=== PATIENT | female | born 1950 | race Caucasian/White ===

== ENCOUNTER 2016-11-09 08:48 | Outpatient (CLI) | payer OTHER, MEDICAID | END 2016-11-09 08:49 | disposition home or self-care (01) | DX: Z79.899 Other long term (current) drug therapy (principal); J30.2 Other seasonal allergic rhinitis; N18.9 Chronic kidney disease, unspecified; E11.9 Type 2 diabetes mellitus without complications; E78.5 Hyperlipidemia, unspecified; E87.1 Hypo-osmolality and hyponatremia; F20.9 Schizophrenia, unspecified; I12.9 Hypertensive chronic kidney disease with stage 1 through stage 4 chronic kidney disease, or unspecified chronic kidney disease ==

== ENCOUNTER 2016-11-10 15:37 | Outpatient (CLI) | payer OTHER, MEDICAID | END 2016-11-10 15:38 | disposition home or self-care (01) | DX: Z79.899 Other long term (current) drug therapy (principal); J30.2 Other seasonal allergic rhinitis; N18.9 Chronic kidney disease, unspecified; E11.9 Type 2 diabetes mellitus without complications; E78.5 Hyperlipidemia, unspecified; E87.1 Hypo-osmolality and hyponatremia; F20.9 Schizophrenia, unspecified; I12.9 Hypertensive chronic kidney disease with stage 1 through stage 4 chronic kidney disease, or unspecified chronic kidney disease ==

== ENCOUNTER 2017-01-08 13:21 | Outpatient (CLI) | payer OTHER, MEDICAID | END 2017-01-08 13:22 | disposition home or self-care (01) | DX: Z12.31 Encounter for screening mammogram for malignant neoplasm of breast (principal) ==

== ENCOUNTER 2017-05-04 10:19 | Outpatient (CLI) | payer OTHER, MEDICAID ==
[2017-05-04 10:47] LABS: CALCIUM 9.7 mg/dL (8.5-10.3); CREATININE 0.9 mg/dL (0.4-1.0); POTASSIUM 4.1 mmol/L (3.5-5.0)
[2017-05-04 10:58] LABS: HEMOGLOBIN A1C 0.62 g/dL
== END 2017-05-04 10:20 | disposition home or self-care (01) ==
LOC: LAB 10:19
PROVIDERS: ATTEND Internal Medicine
DX: E11.9 Type 2 diabetes mellitus without complications (principal); Z79.899 Other long term (current) drug therapy
CPT/HCPCS: 36415; 80048; 83036

== ENCOUNTER 2018-01-07 10:51 | Outpatient (CLI) | payer MEDICARE, OTHER, MEDICAID ==
--- NOTE | 2018-01-07 19:47 | XRAY Report ---
THREE-VIEW RIGHT KNEE: 01/07/2018 CLINICAL INDICATION: Pain. FINDINGS: AP, lateral, sunrise views of the right knee demonstrate severe osteoarthritis. There is no evidence of acute fracture. No effusion is present. IMPRESSION: SEVERE OSTEOARTHRITIS. TD: 01/07/2018 19:46
== END 2018-01-07 10:52 | disposition home or self-care (01) ==
LOC: DI 10:51
PROVIDERS: ATTEND Internal Medicine
DX: M25.561 Pain in right knee (principal); M17.11 Unilateral primary osteoarthritis, right knee

== ENCOUNTER 2018-06-28 10:46 | Outpatient (CLI) | payer OTHER ==
[2018-06-28 11:33] LABS: CALCIUM 9.5 mg/dL (8.5-10.3); CREATININE 0.9 mg/dL (0.4-1.0)
[2018-06-28 11:38] LABS: HB2 TOTAL 15.1 g/dL; HEMOGLOBIN A1C 0.56 g/dL; HEMOGLOBIN A1C % 5.5 % (4.6-6.2)
== END 2018-06-28 10:47 | disposition home or self-care (01) ==
LOC: LAB 10:46
PROVIDERS: ATTEND Internal Medicine
DX: Z79.899 Other long term (current) drug therapy (principal); E11.9 Type 2 diabetes mellitus without complications
CPT/HCPCS: 36415; 80048; 83036

== ENCOUNTER 2018-12-27 09:18 | Outpatient (CLI) | payer MEDICARE, OTHER, MEDICAID ==
[2018-12-27 10:16] LABS: BASOPHILS # (AUTO) 0.1 10^3/uL (0.0-0.1); BASOPHILS % (AUTO) 0.9 %; EOSINOPHILS # (AUTO) 0.4 10^3/uL (0.0-0.7); EOSINOPHILS % (AUTO) 6.5 %; HGB - HEMOGLOBIN 14.4 g/dL (12.0-16.0); LYMPHOCYTES # (AUTO) 1.9 10^3/uL (1.5-3.5); LYMPHOCYTES % (AUTO) 33.1 %; MEAN CORPUSCULAR HEMOGLOBIN 29.2 pg (27.0-31.0); MEAN CORPUSCULAR HGB CONC 32.9 g/dL (32.0-36.0); MEAN CORPUSCULAR VOLUME 88.8 fL (81.0-99.0); MEAN PLATELET VOLUME 7.1 fL (7.9-10.8); MONOCYTES # (AUTO) 0.5 10^3/uL (0.0-1.0); MONOCYTES % (AUTO) 8.1 %; NEUTROPHILS # (AUTO) 2.9 10^3/uL (1.5-6.6); NEUTROPHILS % (AUTO) 51.4 %; PLT - PLATELET COUNT 244 10^3/uL (130-450); RED BLOOD COUNT 4.91 10^6/uL (4.20-5.40); RED CELL DISTRIBUTION WIDTH 13.1 % (12.0-15.0); WHITE BLOOD COUNT 5.6 x10^3/uL (4.8-10.8)
[2018-12-27 10:34] LABS: HB2 TOTAL 15.8 g/dL; HEMOGLOBIN A1C 0.67 g/dL
[2018-12-27 11:00] LABS: ALBUMIN 4.9 g/dL (3.2-5.5); ALBUMIN/GLOBULIN RATIO 1.1 (1.0-2.2); ALKALINE PHOSPHATASE 77 IU/L (42-121); ALT ALANINE AMINOTRANSFERASE 31 IU/L (10-60); AST ASPARTATE AMINOTRANSFERASE 28 IU/L (10-42); BILIRUBIN,TOTAL 0.7 mg/dL (0.2-1.0); BUN - BLOOD UREA NITROGEN 11 mg/dL (6-20); CALCIUM 9.9 mg/dL (8.5-10.3); CARBON DIOXIDE - CO2 25 mmol/L (21-32); CHLORIDE 99 mmol/L (101-111); CHOL/HDL RATIO 4.3 (<4.4); CHOLESTEROL 219 mg/dL; CREATININE 0.8 mg/dL (0.4-1.0); GFR - MDRD 72 (>89); GLUCOSE 136 mg/dL (70-100); HDL CHOLESTEROL 51 mg/dL; LDL CHOLESTEROL,CALCULATED 128 mg/dL; LDL/HDL RATIO 2.5 (<4.4); SODIUM 136 mmol/L (135-145); TOTAL PROTEIN 9.2 g/dL (6.7-8.2); VLDL CHOLESTEROL 40 mg/dL
== END 2018-12-27 09:19 | disposition home or self-care (01) ==
LOC: LAB 09:18
PROVIDERS: ATTEND Internal Medicine
DX: Z12.11 Encounter for screening for malignant neoplasm of colon (principal); Z79.899 Other long term (current) drug therapy; Z12.12 Encounter for screening for malignant neoplasm of rectum; R21 Rash and other nonspecific skin eruption; M25.561 Pain in right knee; Z13.6 Encounter for screening for cardiovascular disorders; E78.5 Hyperlipidemia, unspecified; N18.9 Chronic kidney disease, unspecified; E11.9 Type 2 diabetes mellitus without complications; I12.9 Hypertensive chronic kidney disease with stage 1 through stage 4 chronic kidney disease, or unspecified chronic kidney disease
CPT/HCPCS: 36415; 80053; 80061; 81001; 81003; 82043; 82570; 83036; 83721; 84443; 85025; 87086

== ENCOUNTER 2019-02-06 13:14 | Outpatient (CLI) | payer MEDICARE, OTHER, MEDICAID ==
--- NOTE | 2019-02-07 10:27 | Mammography Report ---
Reason: SCREENING MAMMO Procedure Date: 02/06/2019 Accession Number: [id number] / [id number] Procedure: ALEJANDRA - Screening Mammo Dig Bilat CPT Code: FULL RESULT: EXAM: Screening Mammo Dig Bilat DATE: 02/06/2019 2:25 PM CLINICAL HISTORY: Screening encounter. No reported risk factors. TECHNIQUE: (B) - Bilateral CC and MLO views were obtained. COMPARISON: 01/08/2017 through 09/29/2010. PARENCHYMAL PATTERN: (F) - The breast(s) demonstrate(s) diffuse fatty replacement. FINDINGS: There are typically benign vascular calcifications. There are no suspicious masses, calcifications, or areas of distortion. IMPRESSION: Benign findings. BI-RADS category 2. RECOMMENDATION: (ANNUAL) - Recommend routine annual screening mammography. BI-RADS CATEGORY: (2) - Benign Findings. STANDARD QUALIFYING STATEMENTS: 1. This examination was not reviewed with the aid of Computer-Aided Detection (CAD). 2. A negative or benign imaging report should not preclude biopsy if clinically suspicious findings are present. 3. Dense breasts may obscure an underlying neoplasm. 4. This examination was reviewed without the aid of 3D breast imaging (tomosynthesis).
== END 2019-02-06 13:15 | disposition home or self-care (01) ==
LOC: DI 13:14
PROVIDERS: ATTEND Internal Medicine
DX: Z12.31 Encounter for screening mammogram for malignant neoplasm of breast (principal)
CPT/HCPCS: 77067

== ENCOUNTER 2020-02-20 11:24 | Outpatient (CLI) | payer MEDICARE, OTHER, MEDICAID ==
[2020-02-20 18:25] LABS: ALBUMIN 4.9 g/dL (3.2-5.5); ALBUMIN/GLOBULIN RATIO 1.2 (1.0-2.2); BILIRUBIN,TOTAL 0.8 mg/dL (0.2-1.0); CALCIUM 10.2 mg/dL (8.5-10.3); CREATININE 0.9 mg/dL (0.4-1.0); TOTAL PROTEIN 8.9 g/dL (6.7-8.2)
[2020-02-20 18:42] LABS: HB2 TOTAL 16.1 g/dL; HEMOGLOBIN A1C 0.68 g/dL
== END 2020-02-20 23:59 | disposition home or self-care (01) ==
LOC: LAB.WCP 11:24
PROVIDERS: ATTEND Obstetrics & Gynecology
DX: N81.4 Uterovaginal prolapse, unspecified (principal); E11.9 Type 2 diabetes mellitus without complications
CPT/HCPCS: 36415; 80053; 83036

== ENCOUNTER 2020-02-28 09:12 | Outpatient (CLI) | payer MEDICARE, OTHER, MEDICAID ==
[2020-02-28 09:39] LABS: BASOPHILS % (AUTO) 0.7 %; EOSINOPHILS # (AUTO) 0.1 10^3/uL (0.0-0.7); HGB - HEMOGLOBIN 14.4 g/dL (12.0-16.0); LYMPHOCYTES # (AUTO) 1.5 10^3/uL (1.5-3.5); LYMPHOCYTES % (AUTO) 27.5 %; MEAN CORPUSCULAR HGB CONC 33.3 g/dL (32.0-36.0); MEAN PLATELET VOLUME 8.6 fL (7.9-10.8); MONOCYTES # (AUTO) 0.4 10^3/uL (0.0-1.0); MONOCYTES % (AUTO) 7.2 %; NEUTROPHILS # (AUTO) 3.4 10^3/uL (1.5-6.6); NEUTROPHILS % (AUTO) 62.4 %; PLT - PLATELET COUNT 257 10^3/uL (130-450); RED CELL DISTRIBUTION WIDTH 13.1 % (12.0-15.0); WHITE BLOOD COUNT 5.4 x10^3/uL (4.8-10.8)
[2020-02-28 10:01] LABS: ALBUMIN 5.1 g/dL (3.2-5.5); ALBUMIN/GLOBULIN RATIO 1.3 (1.0-2.2); ALKALINE PHOSPHATASE 65 IU/L (42-121); ALT ALANINE AMINOTRANSFERASE 33 IU/L (10-60); AST ASPARTATE AMINOTRANSFERASE 25 IU/L (10-42); BILIRUBIN,TOTAL 0.8 mg/dL (0.2-1.0); BUN - BLOOD UREA NITROGEN 11 mg/dL (6-20); CALCIUM 9.8 mg/dL (8.5-10.3); CARBON DIOXIDE - CO2 27 mmol/L (21-32); CHLORIDE 98 mmol/L (101-111); CHOL/HDL RATIO 3.6 (<4.4); CHOLESTEROL 196 mg/dL; CREATININE 0.9 mg/dL (0.4-1.0); GLUCOSE 152 mg/dL (70-100); HB2 TOTAL 15.1 g/dL; HDL CHOLESTEROL 54 mg/dL; HEMOGLOBIN A1C 0.7 g/dL; HEMOGLOBIN A1C % 6.4 % (4.6-6.2); LDL CHOLESTEROL,CALCULATED 115 mg/dL; LDL/HDL RATIO 2.1 (<4.4); SODIUM 137 mmol/L (135-145); VLDL CHOLESTEROL 27 mg/dL
== END 2020-02-28 09:13 | disposition home or self-care (01) ==
LOC: LAB 09:12
PROVIDERS: ATTEND Internal Medicine
DX: E87.1 Hypo-osmolality and hyponatremia (principal); Z13.6 Encounter for screening for cardiovascular disorders; F20.9 Schizophrenia, unspecified; N81.4 Uterovaginal prolapse, unspecified; M19.90 Unspecified osteoarthritis, unspecified site; Z79.899 Other long term (current) drug therapy; E78.5 Hyperlipidemia, unspecified; E11.22 Type 2 diabetes mellitus with diabetic chronic kidney disease; I12.9 Hypertensive chronic kidney disease with stage 1 through stage 4 chronic kidney disease, or unspecified chronic kidney disease; N18.9 Chronic kidney disease, unspecified
CPT/HCPCS: 36415; 80053; 80061; 82043; 82570; 83036; 83721; 84443; 85025

== ENCOUNTER 2020-03-05 14:00 | Outpatient (CLI) | payer MEDICARE, OTHER, MEDICAID ==
[2020-03-05 16:10] LABS: CREATININE,URINE 45.5 mg/dL; MICROALBUM/CREATININE RATIO,UR 28.6 ug/mg (<30.0); MICROALBUMIN,URINE 1.3 mg/dL (0-300.0)
== END 2020-03-05 23:59 | disposition home or self-care (01) ==
LOC: LAB.R 14:00
PROVIDERS: ATTEND Internal Medicine
DX: E87.1 Hypo-osmolality and hyponatremia (principal); Z13.6 Encounter for screening for cardiovascular disorders; F20.9 Schizophrenia, unspecified; N81.4 Uterovaginal prolapse, unspecified; M19.90 Unspecified osteoarthritis, unspecified site; Z79.899 Other long term (current) drug therapy; N18.9 Chronic kidney disease, unspecified; E11.9 Type 2 diabetes mellitus without complications; I12.9 Hypertensive chronic kidney disease with stage 1 through stage 4 chronic kidney disease, or unspecified chronic kidney disease
CPT/HCPCS: 82043; 82570

== ENCOUNTER 2020-04-05 07:42 | Day surgery (SDC) | payer MEDICARE, OTHER, MEDICAID ==
[2020-04-05] MEDS ORDERED: LACTATED RINGERS 1,000 ML IV ONE ×2 (08:08→09:28)
--- NOTE | 2020-04-05 08:16 | ANESTHESIA ---
Pre-Anesthesia VS, & Labs - Diagnosis Change in bowel habits - Procedure colonoscopy Vital Signs: Temp Pulse Resp BP Pulse Ox 36.5 C 92 18 141/88 H 96 04/05/20 07:59 04/05/20 07:59 04/05/20 07:59 04/05/20 07:59 04/05/20 07:59 Height 5 ft Weight (kg) 77.5 kg - NPO >8 hours - Is Patient ?: No - Lab Results Current Lab Results: Laboratory Tests 04/05/20 08:05: POC Whole Bld Glucose 150 H Home Medications and Allergies Home Medications: Ambulatory Orders Acetaminophen [Tylenol Extra Strength] 2 TID 04/05/20 Aripiprazole [Abilify] 1 DAILY 04/05/20 Ascorbic Acid [Vitamin C] 1 DAILY 04/05/20 Fluticasone [Flonase] 1 DAILY 04/05/20 Loratadine [Claritin] 10 mg PO DAILY 11/06/14 OLANZapine [Olanzapine] 10 mg PO DAILY 11/06/14 Acetaminophen [Tylenol] 1 tab PO DAILY PRN 03/28/16 Aquadeks Chew 1 tab PO DAILY 03/28/16 Glipizide 1 tab PO DAILY 03/28/16 amLODIPine [Norvasc] 10 mg PO DAILY 03/28/16 Allergies/Adverse Reactions: Allergies Allergy/AdvReac Type Severity Reaction Status Date / Time hydrochlorothiazide Allergy Unknown Verified 03/28/16 22:31 Anes History & Medical History - Anesthetic History Anesthesia Complications: reports: No previous complications Family history of Anesthesia Complications: Denies Family history of Malignant Hyperthermia: Denies - Medical History Cardiovascular: reports: Hypertension Pulmonary: reports: None Gastrointestinal: reports: None Urinary: reports: Frequency Neuro: reports: None Musculoskeletal: reports: None Endocrine/Autoimmune: reports: Type 2 diabetes Blood Disorders: reports: None Smoking Status: Never smoker Psychosocial: reports: Anxiety - Surgical History General:  Eyes Ears Nose Throat (EENT): Cataracts Exam General: Alert, Oriented x3, Cooperative, No acute distress Dental: Other (edentulous) Mouth Openin Fingerbreadth Neck Mobility: Normal Mallampati classification: II Thyromental Distance: 4-6 cm Respiratory: Lungs clear, Normal breath sounds, No respiratory distress, No accessory muscle use Cardiovascular: Regular rate, Normal S1, Normal S2, No murmurs Abdomen: Normal bowel sounds, Soft, No tenderness, No hepatospenomegaly, No masses Extremities: No clubbing, No cyanosis, No edema, Normal pulses, No tenderness/swelling Neurological: Normal gait, Normal speech, Strength at 5/5 X4 ext, Normal tone, Sensation intact, Cranial nerves 3-12 NL, Reflexes 2+ Mental/Cognitive Status: Alert/Oriented X3, Normal for patient Cognitive Status: Other (describe below) (schizophrenia under control) Plan Anesthesia Type: MAC Consent for Procedure(s) Verified and Reviewed: Yes Code Status: Attempt Resuscitation ASA classification: 2-Mild systemic disease Is this case an emergency?: No
--- NOTE | 2020-04-05 08:31 | CONSULTATION NOTE ---
Consultation Report: Saw this patient per Dr Rodriguez's request. Patient respiratory care practitioner who has been taking care of her for 10 years is in the room and provided information about the patient. Patient is A&O x3 and able to answer questions as well. This patient does not have any significant systemic disease. She has schizophrenia which is under control with no recent history of manic attacks. He BP and blood glucose is under control. I have spoken with Dr Quiles and made him aware and suggested that the patient will be ok with Nurse Sedation.He agrees. We will be available should they need any help.
[2020-04-05] MEDS ORDERED: MIDAZOLAM 2 MG/2 ML VIAL IVP ONE (08:45)
[2020-04-05] MEDS ORDERED: fentaNYL 250 MCG/5 ML VIAL IVP ONE (08:45)
[2020-04-05 09:53] VITALS: BP 127/82
--- NOTE | 2020-04-05 10:14 | PROCEDURE REPORT ---
DATE OF SERVICE: 04/05/2020 Physician: Jason Quiles MD PREOPERATIVE DIAGNOSIS: Change in bowel habits and screening for colon cancer. POSTOPERATIVE DIAGNOSES 1. Change in bowel habits and screening for colon cancer. 2. Severe diverticulosis cecum, ascending colon. 3. Moderate diverticulosis, descending colon. 4. No polyps identified. ANESTHESIA: Nurse sedation with 4 mg of Versed and 100 mcg of fentanyl. INDICATIONS FOR PROCEDURE: Patient is a 69-year-old with a change in bowel habits. She has not had colon cancer screening in the past. She presents for colonoscopy. Risks discussed, alternatives discussed. All questions answered and consent obtained. DESCRIPTION OF PROCEDURE: Patient was properly identified, brought to the operating room, and placed in left lateral decubitus position. Sedation was given. A digital rectal examination was performed and was normal. Colonoscope was passed to the cecum. The cecum was identified by appendix and ileocecal valve. She had significant diverticulosis of the cecum and ascending colon. The scope was slowly withdrawn. She had quite significant diverticulosis of the descending colon as well. A retroflex view of the rectum was normal. No polyps were identified. Her prep was fair; however, with irrigation and suction, good visualization was obtained. She tolerated the procedure well. TD: 04/05/2020 09:36 ELISABETH
== END 2020-04-05 07:43 | disposition home or self-care (01) ==
LOC: SDS 07:42
PROVIDERS: ATTEND Surgery
PROC: 0DJD8ZZ Inspection of Lower Intestinal Tract, Via Natural or Artificial Opening Endoscopic (ICD-10-PCS; principal; 2020-04-05 08:45)
DX: R19.4 Change in bowel habit (principal); K57.30 Diverticulosis of large intestine without perforation or abscess without bleeding; E11.9 Type 2 diabetes mellitus without complications; I10 Essential (primary) hypertension; Z79.84 Long term (current) use of oral hypoglycemic drugs
CPT/HCPCS: 45378; J7120

== ENCOUNTER 2020-05-01 08:55 | Observation (INO) | payer MEDICARE, OTHER, MEDICAID ==
[~2020-05-01 08:55] MED LIST: ACETAMINOPHEN 1,000 MG/100 ML 100 ML IV ONE; CELECOXIB 100 MG CAPSULE PO ONE; GABAPENTIN 400 MG CAPSULE ONE; LACTATED RINGERS 1,000 ML IV ONE; PHENAZOPYRIDINE 100 MG TABLET PO ONE
[2020-05-01 09:28] LABS: BILIRUBIN,URINE NEGATIVE (NEGATIVE); GLUCOSE, URINE (UA) NEGATIVE (NEGATIVE); KETONES,URINE (UA) NEGATIVE (NEGATIVE); LEUKOCYTE ESTERASE, URINE NEGATIVE (NEGATIVE); NITRITE,URINE NEGATIVE (NEGATIVE); OCCULT BLOOD,URINE NEGATIVE (NEGATIVE); PROTEIN,URINE NEGATIVE (NEGATIVE); UROBILINOGEN,URINE 0.2 (NORMAL) E.U./dL (NORMAL)
[2020-05-01 09:30] LABS: CLARITY,URINE CLEAR (CLEAR)
[2020-05-01] MEDS ORDERED: LIDOCAINE 1%-EPI 1:100000 20 ML MDV ONE (09:44)
[2020-05-01] MEDS ORDERED: METHYLENE BLUE 0.5% 50 MG/10 ML AMPULE ONE (09:45)
[2020-05-01] MEDS ORDERED: VASOPRESSIN 20 UNIT/ML VIAL ONE (09:46)
--- NOTE | 2020-05-01 10:25 | ANESTHESIA ---
Pre-Anesthesia VS, & Labs - Diagnosis pelvic organ prolapse - Procedure total vaginal hysterectomy, salpingectomy, AP repair Vital Signs: Temp Pulse Resp BP Pulse Ox 37.0 C 81 16 132/81 H 98 05/01/20 09:16 05/01/20 09:16 05/01/20 09:16 05/01/20 09:16 05/01/20 09:16 Height 4 ft 5 in Weight (kg) 77.7 kg - NPO >8 hours - Is Patient ?: No - Lab Results Current Lab Results: Laboratory Tests 05/01/20 09:29: POC Whole Bld Glucose 152 H Home Medications and Allergies Loratadine [Claritin] 10 mg PO DAILY 11/06/14 Aquadeks Chew 1 tab PO DAILY 03/28/16 Glipizide 1 tab PO DAILY 03/28/16 amLODIPine [Norvasc] 10 mg PO DAILY 03/28/16 Acetaminophen [Tylenol Extra Strength] 2 mg PO TID 04/05/20 Aripiprazole [Abilify] 20 mg PO DAILY 04/05/20 Ascorbic Acid [Vitamin C] 1 tab PO DAILY 04/05/20 Fluticasone [Flonase] 1 spray KANU DAILY 04/05/20 Allergies/Adverse Reactions: Allergies Allergy/AdvReac Type Severity Reaction Status Date / Time hydrochlorothiazide Allergy Unknown Verified 03/28/16 22:31 Anes History & Medical History - Anesthetic History Family history of Anesthesia Complications: Denies Family history of Malignant Hyperthermia: Denies - Medical History Cardiovascular: reports: Hypertension Pulmonary: reports: None Gastrointestinal: reports: None Urinary: reports: Frequency, Other (history of renal failure, now resolved) Neuro: reports: None, Other (history of schizophrenia) Musculoskeletal: reports: None Endocrine/Autoimmune: reports: Type 2 diabetes Blood Disorders: reports: None Smoking Status: Never smoker Psychosocial: reports: No issues indicated - Surgical History General:  Eyes Ears Nose Throat (EENT): Cataracts Exam General: Alert, Oriented x3, Cooperative, No acute distress Dental: Other (edentulous) Mouth Openin Fingerbreadth Neck Mobility: Normal Mallampati classification: IV Thyromental Distance: 4-6 cm Respiratory: Lungs clear, Normal breath sounds, No respiratory distress, No accessory muscle use Cardiovascular: Regular rate, Normal S1, Normal S2, No murmurs Mental/Cognitive Status: Alert/Oriented X3, Normal for patient Plan Anesthesia Type: General Consent for Procedure(s) Verified and Reviewed: Yes Code Status: Attempt Resuscitation ASA classification: 2-Mild systemic disease Is this case an emergency?: No
[2020-05-01] MEDS ORDERED: CEFAZOLIN SODIUM IN 0.9 % NACL 2 GM/100 ML BAG IV ONE (10:28)
[2020-05-01] MEDS ORDERED: fentaNYL 100 MCG/2 ML VIAL IVP ONE (11:20)
[2020-05-01] MEDS ORDERED: MIDAZOLAM 2 MG/2 ML VIAL IVP ONE (11:20)
[2020-05-01] MEDS ORDERED: ePHEDrine 50 MG/ML VIAL IVP ONE (11:20)
[2020-05-01] MEDS ORDERED: ONDANSETRON 4 MG/2 ML VIAL IVP ONE (11:20)
[2020-05-01] MEDS ORDERED: ROCURONIUM 50 MG/5 ML VIAL IVP ONE (11:20)
[2020-05-01] MEDS ORDERED: GLYCOPYRROLATE 1 MG/5 ML VIAL IVP ONE (11:20)
[2020-05-01] MEDS ORDERED: LIDOCAINE-MPF 2% 5 ML VIAL IM ONE (11:20)
[2020-05-01] MEDS ORDERED: NEOSTIGMINE 1 MG/1 ML 10 ML MDV IVP ONE (11:20)
[2020-05-01] MEDS ORDERED: ACETAMINOPHEN 1,000 MG/100 ML 100 ML IV ONE (11:20)
[2020-05-01] MEDS ORDERED: PROPOFOL 200 MG/20 ML VIAL IVP ONE (11:20)
[2020-05-01] MEDS ORDERED: METHYLENE BLUE 0.5% 50 MG/10 ML AMPULE IR ONE (11:52)
[2020-05-01] MEDS ORDERED: VASOPRESSIN 20 UNIT/ML VIAL IVP ONE ×2 (11:58→15:00)
[2020-05-01] MEDS ORDERED: LIDOCAINE 1%-EPI 1:100000 20 ML MDV SUBQ ONE (12:00)
[2020-05-01] MEDS ORDERED: MORPHINE 2 MG/ML CARPUJECT IVP PRN (14:24)
[2020-05-01] MEDS ORDERED: HYDROmorphone 0.5 MG/0.5 ML SYRINGE IVP PRN (14:24)
[2020-05-01] MEDS ORDERED: ATROPINE ABBOJECT 1 MG/10 ML SYRINGE IVP PRN (14:24)
[2020-05-01] MEDS ORDERED: NALOXONE 0.4 MG/ML VIAL IVP PRN (14:24)
[2020-05-01] MEDS ORDERED: fentaNYL 100 MCG/2 ML VIAL IVP PRN (14:24)
[2020-05-01] MEDS ORDERED: ONDANSETRON 4 MG/2 ML VIAL IVP PRN (14:24)
[2020-05-01] MEDS ORDERED: LACTATED RINGERS 1,000 ML IV SCH (15:00)
[2020-05-01] MEDS ORDERED: ESTROGENS, CONJUGATED CREAM 30 GM TUBE ONE (15:18)
[2020-05-01] MEDS ORDERED: LACTATED RINGERS 1,000 ML IV ONE (15:20)
[2020-05-01] MEDS ORDERED: HYDROmorphone 1 MG/ML CARPUJECT IVP PRN (15:50)
[2020-05-01] MEDS ORDERED: ONDANSETRON ODT 4 MG TABLET TL PRN (15:50)
[2020-05-01] MEDS ORDERED: oxyCODONE 5 MG TABLET PO PRN (15:50)
--- NOTE | 2020-05-01 16:08 | ANESTHESIA POST OP EVALUATION ---
Anesthesia Post Eval - Post Anesthesia Eval Vitals: Last Vital Signs Temp 36.3 C L 05/01/20 15:36 Pulse 72 05/01/20 16:00 Resp 18 05/01/20 16:00 BP 111/70 05/01/20 16:00 Pulse Ox 99 05/01/20 16:00 CV Function Including HR & BP: positive: Stable Pain Control: positive: Satisfactory Nausea & Vomiting: positive: Negative Mental Status: positive: Baseline Respiratory Status: Airway Patent Hydration Status: Satisfactory Anesthesia Complications: positive: None
--- NOTE | 2020-05-01 16:38 | OPERATIVE REPORT ---
Operative Report - General Admit Date: 05/01/20 Procedure Date: 05/01/20 Planned Procedure: Total vaginal hysterectomy, bilateral salpingectomy, anterior and posterior repair. Cystoscopy. Pre-Op Diagnosis: Stage IV uterine prolapse Procedure Performed: Stage IV uterine prolapse Failed pessary management Post Op Diagnosis: same - Procedure Note Primary Surgeon: Jovita Pelayo MD Secondary Surgeon: Mc James MS Anesthesia Provider: Marycarmen Burgos CRNA Anesthesia Technique: General ET tube Pathology: Uterus with cervix. Fallopian tubes surgical separate, but sent in same sample. IV Fluids (mL): 1,100 Estimated Blood Loss (mL): 100 Urine Output (mL): 150 Indications: Patient is a 69 yo female with Stage IV uterine prolapse and Stage III cystoc karyn/rectocele who has failed management with pessary. Desires definitive surgical management. Findings: Stage IV uterine prolapse and cystocle, Stage II rectocele. Normnal appearing uterus. Mesosalpinx wiht fatty deposits. Normal fallopian tubes. At clsoe of procedure, rectal vault palpated free of suture and cystoscopy showed bladder to be absent of suture/injury and bilateral ureteral jets were noted. Complications: None - Other Other Information/Narrative: Consent was again confirmed. The patient was brought to the OR and underweight general anesthesia. She was placed in dorsal lithotomy with legs supported in yellowfin stirrups. Bimanual exam was performed. She was then prepared and draped in the usual sterile fashion. Redmond catheter was in place and backfilled with 50 cc of dilute methylene blue and clamped. SCDs were confirmed to be in place and operating. A surgical time out was performed. Administration of 2g IV cefazolin was confirmed. A weighted speculum was placed in the posterior vaginal vault. The cervix was grasped with a a double toothed tenaculum clamp on both its anterior and posterior lips. A total of 20 cc of 20mg vasopressin/100 cc was injected in a circumferential direction around the cervix. With downward traction, we made a circumferential incision of the vaginal epithelium at the junction of the cervix with the Bovie cautery to aid entry into the peritoneum. The overlying vaginal epithelium was dissected off the underlying cervical stroma in an combination of sharp and blunt dissection. The cervicovesical space was then created by both blunt and sharp dissection. At no point was there spillage of methylene blue. Entrance into the anterior space was completed and a right angle retractor was inserted under the bladder. The posterior cul-de-sac was entered sharply in the same manner. A long necked weighted speculum was then placed in the vagina through the posterior space. The uterosacral ligaments were clamped with Pebbles clamps and ligated with #0 Vicryl suture bilaterally. A moistened sponge stick was placed in the posterior cul de sac to retract the bowel and patient was placed in Trendelenburg position. A laparoscopic Ligasure bipolar device was then used to seal and ligate each pedicle. The uterosacral ligaments were suture ligated as above. The cardinal ligaments, uterine vessels, broad ligaments, and utero-ovarian pedicles were sealed and ligated with the Ligasure device. The ovaries were visualized on either side. The left fallopian tube, now transected from the uterine body, was grasped and elevated with [place] clamps. The Ligasure device was used to seal and ligate the underlying mesosalpinx and the tubal segment was removed from the surgical field and sent to pathology. This process was repeated on the right fallopian tube. Good hemostasis was noted. Ovaries were inspected as with findings noted above. We then removed the weighted duckbill speculum and placed a regular speculum in the vaginal vault and visualized the entire area. We inspected for hemostasis, and this was secured. The peritoneum was closed with 2-0 Vicryl with a running pursestring suture. Allis clamps were then placed at the fornices of the vaginal cuff. Additional dilute vasopressin was injected under the vaginal mucosa of the anterior vaginal wall to about 1 cm below the urethral meatus. The mucosa was undermined with Metzenbaum scissors. In the space, an incision was made from the anterior aspect of the vaginal cuff, and continued until the vagina is opened to within 1 cm of the urethral meatus. The edges of the mucosa were grasped bilaterally with wide Allis clamps and held in the lateral position. The pubovesical cervical fascia was from the vaginal mucosa in a combinaiton of sharp and blunt dissection. A series of #2-0 Vicryl interrupted sutures were then placed sequentially along the lateral folds of the vesicovaginal space, plicating the pubovesical fascia, together to tuck the bladder back while simultaneously bringing the lateral vaginal tissues together. The excess vaginal mucosa was then trimmed. The vagina was then closed with a running locked #2 Vicryl suture. Aliis clamps were used to grasp the hymenal ring bilaterally. Dilute vasopressin solution was infiltrated under the posterior vaginal mucosa midline and into the perineal body. A transverse incision at the hymenal ring, forming the base of and inverted triangular incision in the perineum with the apex above the anus, exposing the aponeurosis of the bulbocavernosis muscles. Metzenbaum scissors is inserted under the posterior vaginal mucosa, dissecting the posterior mucosa off the rectovaginal fascia. The posterior vaginal wall was then opened vertically and midline up to the apex of the rectocele. The cut edges were held and splayed laterally with a series of Allis clamps. The open vaginal mucosa was then dissected laterally with a combination of sharp and blunt dissection, exposing the perirectal fascia. The perirectal fascia was then plicated with interrupted #2-0 Vicryl sutures to draw the lateral folds together and tuck the rectocele back. The excess vaginal mucosa was trimmed. The posterior vaginal wall was closed with a running locked 2-0 Vicryl to the hymenal tags. The perineal body was reinforced with a crown suture using running unlocked 2-0 Vicryl and the perineal skin was closed with running subcuticular #2-0 Vicryl. Good hemostasis was noted. Rectal exam was performed and the rectal vault was absent of penetrating suture. The uterosacral ligaments were then fixed to the anterior and posterior vaginal cuff margins to aid in vaginal support. The vaginal cuff was then closed with interrupted figure of 8 sutures using 0-Vicryl. Hemostasis was excellent. The vaginal vault was cleared of debris. The sponge count was correct times 2 at this time. A Redmond catheter was then unclamped. The bladder was drained and the Redmond was removed. The cystoscope was inserted and the bladder was distended with normal saline. The survey of all of the bladder surfaces was completed and was noted to be absent of suture or trauma. Ureteral jets were observed directly bilaterally. Bladder was drained and cystoscope was removed. Redmond catheter was replaced. All instruments were removed from the vagina and good hemostasis was noted. Vaginal packing soaked with estrogen cream was placed in the vaginal vault. Sponge and needle counts were confirmed to be correct. Procedure was closed with a post-operative time out, patient extubated, and brought to the PACU in good condition. Dr. James assisted with retraction, assistance with suturing, cystoscopy, and sharing of surgical insight.
[2020-05-01] MEDS: LACTATED RINGERS 1,000 ML IV SCH ×2 (16:52→21:32)
[2020-05-01] MEDS: ACETAMINOPHEN 500 MG TABLET PO SCH ×2 (16:52→23:53)
[2020-05-01] MEDS: KETOROLAC 30 MG/ML VIAL IVP SCH ×2 (16:52→21:31)
[2020-05-01] MEDS: INSULIN ASPART 300 UNIT/3 ML PEN SUBQ SCH ×2 (16:54→21:13)
[2020-05-01 20:21] LABS: HB2 TOTAL 13.2 g/dL; HEMOGLOBIN A1C 0.58 g/dL; HEMOGLOBIN A1C % 6.2 % (4.6-6.2)
[2020-05-01] MEDS: SIMETHICONE CHEW 80 MG TABLET PO SCH (21:31)
[2020-05-01] MEDS: GABAPENTIN 100 MG CAPSULE PO SCH (21:31)
[2020-05-01] MEDS: DOCUSATE SODIUM 100 MG CAPSULE PO SCH (21:31)
[2020-05-02] MEDS: KETOROLAC 30 MG/ML VIAL IVP SCH ×3 (04:38→15:38)
[2020-05-02 05:33] LABS: BASOPHILS % (AUTO) 0.3 %; EOSINOPHILS # (AUTO) 0.2 10^3/uL (0.0-0.7); EOSINOPHILS % (AUTO) 1.7 %; HGB - HEMOGLOBIN 11.1 g/dL (12.0-16.0); LYMPHOCYTES # (AUTO) 1.2 10^3/uL (1.5-3.5); LYMPHOCYTES % (AUTO) 13.6 %; MEAN CORPUSCULAR HEMOGLOBIN 29.1 pg (27.0-31.0); MEAN CORPUSCULAR HGB CONC 31.3 g/dL (32.0-36.0); MEAN CORPUSCULAR VOLUME 93.2 fL (81.0-99.0); MEAN PLATELET VOLUME 8.9 fL (7.9-10.8); MONOCYTES # (AUTO) 0.6 10^3/uL (0.0-1.0); NEUTROPHILS # (AUTO) 6.8 10^3/uL (1.5-6.6); NEUTROPHILS % (AUTO) 77.2 %; PLT - PLATELET COUNT 194 10^3/uL (130-450); RED BLOOD COUNT 3.81 10^6/uL (4.20-5.40); RED CELL DISTRIBUTION WIDTH 13.3 % (12.0-15.0); WHITE BLOOD COUNT 8.8 x10^3/uL (4.8-10.8)
[2020-05-02] MEDS: GABAPENTIN 100 MG CAPSULE PO SCH ×2 (06:15→14:32)
[2020-05-02] MEDS: SIMETHICONE CHEW 80 MG TABLET PO SCH ×2 (06:15→14:32)
[2020-05-02] MEDS: LACTATED RINGERS 1,000 ML IV SCH (07:46)
[2020-05-02] MEDS: INSULIN ASPART 300 UNIT/3 ML PEN SUBQ SCH ×3 (08:09→16:54)
[2020-05-02] MEDS: DOCUSATE SODIUM 100 MG CAPSULE PO SCH (08:27)
[2020-05-02] MEDS: ACETAMINOPHEN 500 MG TABLET PO SCH ×2 (08:27→15:38)
[2020-05-02] MEDS ORDERED: ENOXAPARIN 40 MG/0.4 ML SYRINGE SUBQ SCH (09:00)
[2020-05-02 18:21] VITALS: BP 140/86
--- NOTE | 2020-05-03 16:43 | HISTORY & PHYSICAL EXAMINATION ---
HPI - History of Present Illness HPI Comment/Other: Patient is a 69-year-old here for preop evaluation for hysterectomy for uterine prolapse. Naye was last seen in clinic by me on 01/31/2020 at which time she was fit for pessary. She was fit with a #4 ring with support.At that time she was noted to have stage III uterine prolapse. She presented to clinic on 02/20/2020 to convey her lack of satisfaction with the pessary. It is not clear whether the pessary fell out or whether the patient was removing it. Regardless patient wants to proceed with surgical management. Given her baseline issues with diabetes, Dr. maravilla had run a comprehensive metabolic panel as well as a hemoglobin A1c. Her hemoglobin A1c was 6% and her renal function, electrolytes, and liver function were all well within normal limits. Of note patient has schizophrenia and presents with her caregiver. Her caregiver reassures us that patient has competency and retains legal and medical autonomy. She does not require any guardian's approval to proceed with surgical procedures. This was reiterated since time of last visit. Patient is vocal in expressing her desire to move forward with surgery as well as her pref erence in approach. Undergo complete closure of the vagina. Her BMI is 38. We reviewed high risk of failureWe discussed the possibility of colpocleisis. Given that patient is only 69, she is not ready to of prolapse surgeries with elevated BMI's. Patient is aware of this and wants to proceed. Patient is a G4, P4 with no prior surgeries. No change in health history since time of prior exam other than as noted above. Allergies: HYDROCHLOROTHIAZIDE (Critical) Medications: ABILIFY 10 MG ORAL TABLET (ARIPIPRAZOLE) Take one tablet by mouth once daily; Route: ORAL SENTRY SENIOR ORAL TABLET (MULTIPLE VITAMINS-MINERALS) 1 tab daily; Route: ORAL LORATADINE 10 MG ORAL TABLET (LORATADINE) 1 po qd; Route: ORAL AQUADEKS ORAL TABLET CHEWABLE (MULTIPLE VITAMINS-MINERALS) 1 po qd; Route: ORAL ACETAMINOPHEN 500 MG ORAL TABLET (ACETAMINOPHEN) 2 po tid; Route: ORAL GLIPIZIDE ER 5 MG ORAL TABLET EXTENDED RELEASE 24 HOUR (GLIPIZIDE) ; Route: ORAL AMLODIPINE BESYLATE 10 MG ORAL TABLET (AMLODIPINE BESYLATE) ; Route: ORAL Problems: Preop exam (ICD-V72.84) (WCF64-D34.818) Uterine prolapse (ICD-618.1) (KSQ65-E92.4) Arthritis of right knee (IWP48-L80.861) Kidney failure (ICD-586) (SIP67-R17) Diabetes, Type 2 (ICD-250.00) (IXN92-M89.9) Anxiety (ICD-300.00) (EWA46-V15.9) Vital Signs: Patient Profile: 69 Years Old Female Height: 57 inches Weight: 178 pounds BMI: 38.66 BP sittin / 89 Cuff size: regular Vitals Entered By: UBALDO Jose (March 05, 2020 2:29 PM) Meds Reviewed: Done Allergies Reviewed: Done Past Medical History: Anxiety Depression Diabetes, Type 2 DJD Schizophrenia Past Surgical History: Reviewed and updated today: none [employer] Review of Systems ROS Comments: As per HPI, otherwise remaining systems are negative. Physical Constitutional: GEN: NAD, limited in interaction HEAD: NCAT CV: RRR RESP: CTAB, normal effort ABD: S&NT/ND PSYCH: flat, limited interaction NEURO: limited communication, gait somewhat impaired EXT: WWP FROM PRIOR EXAM: VULVA: Normal external female genitalia. Normal Bartholin's, Pender's, urethra meatus and anus. No inguinal lymphadenopathy. VAGINA: Speculum exam reveals normal vaginal mucosa Physiologic discharge and no lesions or abnormal discharge. Split speculum exam shows Stage III uterine prolapse. No urine loss with valsaval Cervix: Parous without lesions or disharge Uterus: Mobile, NT, normal size and contour ADNEXA: exam limited by habitus Impression & Recommendations: Problem # 1: Uterine prolapse (ICD-618.1) (IKH82-R92.4) Patient has uterine prolpase with less pronounced cystocele and rectocele Will proceed with total vaginal hysterectomy with possible cystocele/rectocele We had an extended conversation with regard to aftercare, expectations for pain, limitations in lifting, andpelvc rest. Patient and her caregiver are aware of potential challenges and want to proceed. Orders: PRE OP -[id number] ([id number]) Problem # 2: Preop exam (ICD-V72.84) (JQX23-A16.818) Orders: PRE OP -[id number] ([id number]) Patient was consented to total vaginal hysterectomy, bilateral salpingectomy ,cy stoscopy, and possible AP repair We discussed risks, benefits, alternatives. Reviewed all surgical procedures carry risks of bleeding, infection, and damage nearby tissue and organs. Discussed the risk of infection with blood transfusion is relatively low. Risk of HIV is 1 in 2 million nationwide, risk of hepatitis is 1/million nationwide. Reviewed for possibility of transfusion reaction and possible management with medications. She is provided consent for blood transfusion. Reviewed that anatomically speaking that the vagina is full of bacteria. We cannot fully sterilized the vagina, nor would we want to. When the incision is made to release the uterus from the abdomen, a pathway for bacteria into the otherwise sterile abdominal cavity is created. For this reason we will give her IV antibiotics. She denies any allergies to antibiotics. We discussed the anatomical proximity of other organs near the uterus including but not limited to the bladder, ureters, and bowel. As surgeons, we used a number of surgical to techniques to avoid damaging any of these other organs. We reviewed, that despite her best efforts, sometimes injury occurs to these organs. We discussed that this may cause complicated post operative course. We also reviewed the relatively high failure rate of prolapse procedures, exacerbated by elevated BMI. Patient [and her caregiver] voiced understanding. We also discussed the possibility of converting to an open or laparoscopic procedure. She provided consent to all of the above. We will proceed to surgery with a scheduled operating room date. Current Allergies: HYDROCHLOROTHIAZIDE (Critical) Current Meds: ABILIFY 10 MG ORAL TABLET (ARIPIPRAZOLE) Take one tablet by mouth once daily; Route: ORAL SENTRY SENIOR ORAL TABLET (MULTIPLE VITAMINS-MINERALS) 1 tab daily; Route: ORAL LORATADINE 10 MG ORAL TABLET (LORATADINE) 1 po qd; Route: ORAL AQUADEKS ORAL TABLET CHEWABLE (MULTIPLE VITAMINS-MINERALS) 1 po qd; Route: ORAL ACETAMINOPHEN 500 MG ORAL TABLET (ACETAMINOPHEN) 2 po tid; Route: ORAL GLIPIZIDE ER 5 MG ORAL TABLET EXTENDED RELEASE 24 HOUR (GLIPIZIDE) ; Route: ORAL AMLODIPINE BESYLATE 10 MG ORAL TABLET (AMLODIPINE BESYLATE) ; Route: ORAL PMH/PSH - Past Medical History Cardiovascular: positive: Hypertension Respiratory: positive: None Neuro: positive: None, Other (history of schizophrenia) Endocrine/Autoimmune: positive: Type 2 diabetes GI: positive: None : positive: Frequency, Other (history of renal failure, now resolved) Psych: positive: Schizophrenia Musculoskeletal: positive: None MRSA Hx?: Yes - Past Surgical History General: HEENT: positive: Cataracts Social & Family Hx - Social History Does the pt smoke?: No Smoking Status: Never smoker Does the pt drink ETOH?: No - POLST Patient has POLST: No Meds/Allgy - Home Medications Home Medications: Ambulatory Orders Medication Instructions Recorded Confirmed Loratadine [Claritin] 10 mg PO DAILY 11/06/14 04/30/20 amLODIPine [Norvasc] 10 mg PO DAILY 03/28/16 04/30/20 Aripiprazole [Abilify] 20 mg PO DAILY 04/05/20 04/30/20 Ascorbic Acid [Vitamin C] 1 tab PO DAILY 04/05/20 04/30/20 Fluticasone [Flonase] 1 spray KANU DAILY 04/05/20 04/30/20 Docusate Calcium 100 - 200 mg PO BID #60 capsule 05/01/20 Gabapentin 100 mg PO TID #60 capsule 05/01/20 Glipizide [Glipizide ER] 05/02/20 oxyCODONE [Roxicodone] 5 mg PO Q4H PRN #24 tablet 05/02/20 - Allergies Allergies/Adverse Reactions: Allergies Allergy/AdvReac Type Severity Reaction Status Date / Time hydrochlorothiazide Allergy Unknown Verified 03/28/16 22:31 Results - Lab Results Fish Bones: 05/02/20 04:45
--- NOTE | 2020-05-03 17:15 | PROVIDER PROGRESS NOTE ---
Subjective - Prog Note Date Prog Note Date: 05/02/20 Prog Note Time: 13:30 - Subjective Subjective: Patient is up and ambulating, tolerating po, and voiding. Pain is well managed with pain medications. No complaints. Doing well. Patient reports that vaginal packing was removed. Nurse reports that she did not remove the packing but did a superficial manual sweep and could not identify the packing. Patient has schizophrenia and history is not always optimal. Objective - Vital Signs/Intake & Output Vital Signs: 98.6 71 118/66 16 94 Intake & Output: Intake & Output 04/30/20 05/01/20 05/02/20 05/03/20 23:59 23:59 23:59 23:59 Intake Total 2006.67 3720 Output Total 600 Balance 1406.67 3720 - Objective General Appearance: positive: No acute distress Neck: positive: Nml inspection Respiratory: positive: Chest non-tender, No respiratory distress, Breath sounds nml Cardiovascular: positive: Regular rate & rhythm Abdomen: positive: Non-tender, Nml bowel sounds Extremities: positive: Non-tender, No pedal edema Neurologic/Psychiatric: positive: Other (At baseline level of interaction.) Comments/Other: Perineum without signifant drainage. Manual sweep of the vagina was performed and no packing was noted to be in place. - Lab Results Fish Bones: 05/02/20 04:45 Assessment/Plan - Problem List (1) S/P vaginal hysterectomy Impression: POD#1 s/p TVH/AP repair and cystoscopy Patient reports that the vaginal packing was removed. RN reports visual inspection and superficial sweep of the vaginal failed to identify packing. Provider performed manual sweep of the vagina revealed empty vaginal vault. Similar experience in [facility] in which the pessary was removed by patient without RN assistance. Has had several voids. Tolerating po. Denies pain. Meeting goals for discharge. DC to home
== END 2020-05-02 18:15 | disposition home or self-care (01) ==
LOC: SDS 08:55 → MS2 15:50
PROVIDERS: ADMIT Obstetrics & Gynecology; ATTEND Obstetrics & Gynecology
PROC: 0UT7FZZ Resection of Bilateral Fallopian Tubes, Via Natural or Artificial Opening With Percutaneous Endoscopic Assistance (ICD-10-PCS; 2020-05-01)
PROC: 0UT9FZZ Resection of Uterus, Via Natural or Artificial Opening With Percutaneous Endoscopic Assistance (ICD-10-PCS; principal; 2020-05-01 10:00)
DX: N81.3 Complete uterovaginal prolapse (principal); I10 Essential (primary) hypertension; R32 Unspecified urinary incontinence; R35.0 Frequency of micturition; E11.9 Type 2 diabetes mellitus without complications; Z79.84 Long term (current) use of oral hypoglycemic drugs; F20.9 Schizophrenia, unspecified; F41.9 Anxiety disorder, unspecified
CPT/HCPCS: 36415; 57260; 58552; 81003; 83036; 85025; 85049; A9270; G0378; J0131; J0690; J1650; J7120; 81001; 87086

== ENCOUNTER 2020-08-09 14:12 | Outpatient (CLI) | payer MEDICARE, OTHER, MEDICAID ==
--- NOTE | 2020-08-09 15:11 | XRAY Report ---
PROCEDURE: Thoracic Spine 3 View INDICATIONS: BACK PAIN, CHANGE IN POSTURE TECHNIQUE: 3 views of the thoracic spine were acquired. COMPARISON: None. FINDINGS: Bones: AP views of the thoracic spine demonstrate mild left curvature. The lateral views are obliqued and thoracic spine is not well-visualized due to difficulty obtaining a lateral view due to patient unable to lay on her side.. Soft tissues: No paravertebral stripe thickening. IMPRESSION: No acute traumatic abnormality is identified, however images are limited. If there is con cern for a thoracic spine fracture, recommend CT of the thoracic spine. Reviewed by: Scott Berry on 08/09/2020 3:10 PM PST Approved by: Scott Berry on 08/09/2020 3:10 PM PST Station ID: [id number]
--- NOTE | 2020-08-09 15:14 | XRAY Report ---
PROCEDURE: Lumbar Spine 2 View INDICATIONS: BACK PAIN, CHANGE IN POSTURE TECHNIQUE: 2 views of the lumbar spine were acquired. COMPARISON: None. FINDINGS: 5 ipi-gln-tketftu vertebrae are present. There is normal bony alignment. No vertebral body compress ion fractures. No suspicious bony lesions. There is severe dextroscoliosis of the lumbar spine. The re is disc space narrowing on the L2-3, L3-4, and L4-5 discs on the left. Large left osteophytes are seen. No vertebral body height loss. There is grade 1 anterolisthesis of L5 over S1. The sacroiliac j oints are normal. Soft tissues are normal. IMPRESSION: 1. Severe multilevel degenerative changes with disc disease, primarily on the left along the inner cu rvature of a severely dextroscoliotic lumbar spine. 2. No acute compression fracture. Reviewed by: Scott Berry on 08/09/2020 3:12 PM PST Approved by: Scott Berry on 08/09/2020 3:12 PM PST Station ID: [id number]
== END 2020-08-09 14:13 | disposition home or self-care (01) ==
LOC: DI 14:12
PROVIDERS: ATTEND Internal Medicine
DX: M43.17 Spondylolisthesis, lumbosacral region (principal); M51.36 Other intervertebral disc degeneration, lumbar region; M51.37 Other intervertebral disc degeneration, lumbosacral region
CPT/HCPCS: 72072; 72100

== ENCOUNTER 2021-01-17 13:07 | Outpatient (CLI) | payer MEDICARE, OTHER, MEDICAID | END 2021-01-17 13:08 | disposition short-term general hospital (02) | LOC: EMS 13:07 | DX: R53.83 Other fatigue (principal); R47.02 Dysphasia | CPT/HCPCS: A0425; A0429 ==

== ENCOUNTER 2021-01-24 11:50 | Outpatient (CLI) | payer MEDICARE, OTHER, MEDICAID | END 2021-01-24 11:51 | disposition critical access hospital (66) | LOC: EMS 11:50 | DX: R53.1 Weakness (principal) | CPT/HCPCS: A0425; A0429 ==

== ENCOUNTER 2021-01-24 12:02 | Emergency (ER) | payer MEDICARE, OTHER, MEDICAID ==
--- OUTSIDE RECORDS SUMMARY | 2021-01-24 12:30 | EXTERNAL MEDICAL SUMMARY RPT | Continuity of Care Document ---
:1950 Demographics Phone Unavailable Preferred Language Haitian Marital Status Unknown Uatsdin Affiliation Unknown Race Unknown Ethnic Group Unknown Author Organization [place] Address [address] [phone] Phone Care Team Providers Name Role Phone Laursen Unavailable Unavailable Dannhaur Unavailable Unavailable Medications date description facility 20210118 Aspirin 81 MG Enteric Coated Tablet Is Merged with [facility] 20210118 atorvastatin 80 MG Oral Tablet [facility] 20210117 meloxicam 7.5 MG Oral Tablet [facility] spital Problems date description facility 20210117 Cerebral infarction, unspecified [facility] Procedures date description facility 20210117 General Physician [facility] 20210117 Finding [facility] 20210117 Diagnosis [facility] Vital Signs date measurement value source 20210117 weight_standard 179.68 lb 20210117 weight_metric 81.5 kg 20210117 temperature_standard 97.7 F 20210117 temperature_metric 36.5 C 20210117 respiration_rate 15 /min 20210117 height_standard 64 in 20210117 height_metric 162.56 cm 20210117 heart_rate 73 /min [id number] BP_systolic 141 mm[Hg] [id number] BP_diastolic 76 mm[Hg] 20210118 temperature_standard 97.9 F 20210118 temperature_metric 36.61 C 20210118 respiration_rate 18 /min 20210118 heart_rate 84 /min 20210118 BP_systolic 148 mm[Hg] 20210118 BP_diastolic 91 mm[Hg]
[2021-01-24 12:32] LABS: EOSINOPHILS # (AUTO) 0.2 10^3/uL (0.0-0.7); EOSINOPHILS % (AUTO) 4.1 %; HCT - HEMATOCRIT 36.7 % (37.0-47.0); HGB - HEMOGLOBIN 11.7 g/dL (12.0-16.0); LYMPHOCYTES # (AUTO) 0.9 10^3/uL (1.5-3.5); LYMPHOCYTES % (AUTO) 22.1 %; MEAN CORPUSCULAR HEMOGLOBIN 29.3 pg (27.0-31.0); MEAN CORPUSCULAR HGB CONC 31.9 g/dL (32.0-36.0); MEAN PLATELET VOLUME 8.3 fL (7.9-10.8); MONOCYTES # (AUTO) 0.4 10^3/uL (0.0-1.0); MONOCYTES % (AUTO) 9.1 %; NEUTROPHILS # (AUTO) 2.7 10^3/uL (1.5-6.6); NEUTROPHILS % (AUTO) 63.7 %; PLT - PLATELET COUNT 237 10^3/uL (130-450); RED BLOOD COUNT 3.99 10^6/uL (4.20-5.40); RED CELL DISTRIBUTION WIDTH 13.3 % (12.0-15.0); WHITE BLOOD COUNT 4.2 x10^3/uL (4.8-10.8)
[2021-01-24] MEDS ORDERED: IOPAMIDOL-300 100 ML VIAL ONE (12:36)
--- NOTE | 2021-01-24 12:38 | CT Report ---
PROCEDURE: Head W/O Stroke Protocol INDICATIONS: acute onset aphasia, global deficits, left sided TECHNIQUE: Noncontrast 4.5 mm thick angled axial sections acquired from the foramen magnum to the vertex, with c oronal reformats. For radiation dose reduction, the following was used: automated exposure control, adjustment of mA and/or kV according to patient size. COMPARISON: FINDINGS: Image quality: There is motion artifact limiting evaluation. CSF spaces: There is mild to moderate cerebral volume loss with prominence of the ventricles and sul ci. Basal cisterns are patent. No extra-axial fluid collections. Brain: No intracranial hemorrhage, mass, or mass effect. The kuo-white matter junction appears pres erved. Bilateral subcortical and periventricular hypodensities are present compatible with mild to mo derate chronic white matter small vessel ischemic changes. Skull and face: Calvarium and visualized facial bones are intact, without suspicious lesions. Sinuses: Visualized sinuses and mastoids are clear. IMPRESSION: 1. No definite acute intracranial abnormality. 2. Mild chronic white matter small vessel ischemic changes and cerebral volume loss. 3. Findings reported to nurse practitioner Patrick on 01/24/2021 at 12:35 PM. This study fulfills neurological imaging criteria for inclusion or exclusion of acute stroke therapie s based on available published neurological imaging guidelines. Reviewed by: Carlos Shaw MD on 01/24/2021 12:37 PM PDT Approved by: Carlos Shaw MD on 01/24/2021 12:37 PM PDT Station ID: [id number]
--- NOTE | 2021-01-24 12:38 | ED Physician Documentation ---
History of Present Illness - Stated complaint Stated Complaint: STROKE - Additonal information Additional information: 70-year-old female was brought to the emergency department for evaluation of acute onset aphasia global weakness and left-sided facial droop. Symptoms began at about 11 AM. In speaking with the patient's caregiver she reports that the patient was ambulating to her room to have a Zoom meeting with her primary care provider. While walking she developed sudden weakness and had difficulty speaking. When EMS arrived they documented left-sided facial droop. On presentation to the ER at this time patient is somewhat obtunded. She is localizing pain equally in both her upper extremities but when asked to smile she does have left-sided facial droop. Pupils are equal and reactive. She is otherwise unable to participate in the NIH SS stroke scale. The patient was seen at [facility] last week for acute strokelike symptoms that included left-sided deficits. The patient caregivers tells me that when she was discharged from the hospital she had no deficits including facial droop aphasia, slurred speech or focal weakness. She was advised to start daily aspirin and atorvastatin though due to insurance concerns that she has not filled the aspirin. The patient is at an adult daycare facility and has resided there for 11 years. Previous to today's events she had been managing her own affairs and does not have a DPOA. She does have a history of schizophrenia, diabetes Review of Systems Unable to obtain: AMS, Other (chart review, speaking with care give) PD PAST MEDICAL HISTORY - Past Medical History Cardiovascular: Hypertension Respiratory: None Neuro: None, Other (history of schizophrenia) Endocrine/Autoimmune: Type 2 diabetes GI: None : Frequency, Other (history of renal failure, now resolved) Psych: Schizophrenia Musculoskeletal: None - Past Surgical History Past Surgical History: No General:  HEENT: Cataracts - Present Medications Home Medications: Ambulatory Orders Medication Instructions Recorded Confirmed Loratadine [Claritin] 10 mg PO DAILY 11/06/14 01/24/21 amLODIPine [Norvasc] 10 mg PO DAILY 03/28/16 01/24/21 ARIPiprazole [Abilify] 20 mg PO DAILY 04/05/20 01/24/21 Ascorbic Acid [Vitamin C] 1 tab PO DAILY 04/05/20 01/24/21 Fluticasone [Flonase] 1 spray KANU DAILY 04/05/20 01/24/21 Docusate Calcium 100 - 200 mg PO BID #60 capsule 05/01/20 01/24/21 Acetaminophen [Acetaminophen Extra 500 mg PO TID 01/24/21 01/24/21 Strength] Cholecalciferol (Vitamin D3) 1,000 unit PO DAILY 01/24/21 01/24/21 [Vitamin D3] Meloxicam [Mobic] 7.5 mg PO BID 01/24/21 01/24/21 Multivitamin 1 tab PO DAILY 01/24/21 01/24/21 - Allergies Allergies/Adverse Reactions: Allergies Allergy/AdvReac Type Severity Reaction Status Date / Time hydrochlorothiazide Allergy Unknown Verified 01/24/21 12:29 - Social History Does the pt smoke?: No Smoking Status: Never smoker Does the pt drink ETOH?: No - Immunizations Immunizations are current?: Yes - POLST Patient has POLST: No PD ED PE EXPANDED - General General: Unresponsive - HEENT HEENT: PERRL, Other (Concentric pupil constriction. Unable to follow extraocular movements. No gaze deviation or palsy noted) - Neck Neck: Supple w/out meningeal sx, No tenderness - Cardiac Cardiac: Regular Rate, Radial strong equal, Pedal strong equal, Cap refill < 2 sec. No: Murmur Present - Respiratory Respiratory: Clear to ausultation bhavana. No: Distress, Labored - Abdomen Abdomen: Normal Bowel sounds. No: Tender to palpation - Extremities Extremities: Normal. No: Deformity, Tenderness - Neuro Neuro: Unresponsive, CN deficit (Able to smile briefly with noted left-sided facial droop. Unable to assess other cranial nerves), Aphasia - GCS Eye Opening: To Pain Motor: Localizes to Pain Verbal: Incomprehensible Total: 9 Results - Vitals Vitals: Vital Signs - 24 hr 01/24/21 01/24/21 01/24/21 12:05 12:29 12:32 Temperature 36.0 C L 36.0 C L Heart Rate 53 L 56 L Respiratory 14 14 Rate Blood Pressure 112/75 112/75 99/64 O2 Saturation 96 94 01/24/21 01/24/21 01/24/21 12:59 13:18 13:30 Temperature 36.2 C L Heart Rate 61 62 66 Respiratory 14 14 15 Rate Blood Pressure 133/75 H 158/83 H 171/89 H O2 Saturation 96 99 98 01/24/21 01/24/21 01/24/21 13:43 14:15 14:21 Temperature Heart Rate 61 62 59 L Respiratory 15 12 13 Rate Blood Pressure 171/89 H 157/94 H 158/93 H O2 Saturation 97 96 97 01/24/21 01/24/21 01/24/21 14:30 14:45 15:00 Temperature Heart Rate 67 69 72 Respiratory 13 15 14 Rate Blood Pressure 128/88 H 153/121 H 177/105 H O2 Saturation 96 01/24/21 01/24/21 01/24/21 15:26 16:02 17:00 Temperature Heart Rate 65 61 59 L Respiratory 14 13 13 Rate Blood Pressure 160/92 H 155/89 H 147/94 H O2 Saturation 97 99 Oxygen O2 Source Room air - EKG (time done) 1220 Rate: Rate (enter#) (54) Rhythm: NSR [place]: Normal Intervals: Normal ME QRS: Normal Ischemia: Normal ST segments Compare to prior EKG: Old EKG unavailable Computer interpretation: Agree with computer - Labs Labs: Laboratory Tests 01/24/21 01/24/21 01/24/21 12:24 12:24 12:24 WBC 4.2 L RBC 3.99 L Hgb 11.7 L Hct 36.7 L MCV 92.0 MCH 29.3 MCHC 31.9 L RDW 13.3 Plt Count 237 MPV 8.3 Neut # (Auto) 2.7 Lymph # (Auto) 0.9 L [place] # (Auto) 0.4 Eos # (Auto) 0.2 Baso # (Auto) 0.0 Absolute Nucleated RBC 0.00 Nucleated RBC % 0.0 PT 12.2 INR 1.1 APTT 31.4 Sodium 135 Potassium 3.8 Chloride 98 L Carbon Dioxide 28 Anion Gap 9.0 BUN 17 Creatinine 1.0 Estimated GFR (MDRD) 55 L Glucose 137 H Calcium 9.5 Total Bilirubin 0.6 AST 23 ALT 26 Alkaline Phosphatase 62 Total Protein 8.4 H Albumin 4.5 Globulin 3.9 Albumin/Globulin Ratio 1.2 Lipase 44 Urine Color Urine Clarity Urine pH Ur Specific [place] Urine Protein Urine Glucose (UA) Urine Ketones Urine Occult Blood Urine Nitrite Urine Bilirubin Urine Urobilinogen Ur Leukocyte Esterase Ur Microscopic Review Urine Culture Comments Nasal Adenovirus (PCR) Nasal B. parapertussis DNA (PCR) Nasal Coronavir 229E PCR Nasal Coronavir HKU1 PCR Nasal Coronavir NL63 PCR Nasal Coronavir OC43 PCR Nasal Enterovir/Rhinovir PCR Nasal Influenza B PCR Nasal Influenza A PCR Nasal Parainfluen 1 PCR Nasal Parainfluen 2 PCR Nasal Parainfluen 3 PCR Nasal Parainfluen 4 PCR Nasal RSV (PCR) Nasal B.pertussis DNA PCR Nasal C.pneumoniae (PCR) Kanu Human Metapneumo PCR Nasal M.pneumoniae (PCR) Nasal SARS-CoV-2 (PCR) Urine Opiates Screen Ur Oxycodone Screen Urine Methadone Screen Ur Propoxyphene Screen Ur Barbiturates Screen Ur Tricyclics Screen Ur Phencyclidine Scrn Ur Amphetamine Screen U Methamphetamines Scrn U Benzodiazepines Scrn Urine Cocaine Screen U Cannabinoids Screen 01/24/21 01/24/21 13:37 14:30 WBC RBC Hgb Hct MCV MCH MCHC RDW Plt Count MPV Neut # (Auto) Lymph # (Auto) [place] # (Auto) Eos # (Auto) Baso # (Auto) Absolute Nucleated RBC Nucleated RBC % PT INR APTT Sodium Potassium Chloride Carbon Dioxide Anion Gap BUN Creatinine Estimated GFR (MDRD) Glucose Calcium Total Bilirubin AST ALT Alkaline Phosphatase Total Protein Albumin Globulin Albumin/Globulin Ratio Lipase Urine Color YELLOW Urine Clarity CLEAR Urine pH 8.5 H Ur Specific [place] 1.010 Urine Protein NEGATIVE Urine Glucose (UA) NEGATIVE Urine Ketones NEGATIVE Urine Occult Blood NEGATIVE Urine Nitrite NEGATIVE Urine Bilirubin NEGATIVE Urine Urobilinogen 0.2 (NORMAL) Ur Leukocyte Esterase NEGATIVE Ur Microscopic Review NOT INDICATED Urine Culture Comments NOT INDICATED Nasal Adenovirus (PCR) NOT DETECTED Nasal B. parapertussis DNA (PCR) NOT DETECTED Nasal Coronavir 229E PCR NOT DETECTED Nasal Coronavir HKU1 PCR NOT DETECTED Nasal Coronavir NL63 PCR NOT DETECTED Nasal Coronavir OC43 PCR NOT DETECTED Nasal Enterovir/Rhinovir PCR NOT DETECTED Nasal Influenza B PCR NOT DETECTED Nasal Influenza A PCR NOT DETECTED Nasal Parainfluen 1 PCR NOT DETECTED Nasal Parainfluen 2 PCR NOT DETECTED Nasal Parainfluen 3 PCR NOT DETECTED Nasal Parainfluen 4 PCR NOT DETECTED Nasal RSV (PCR) NOT DETECTED Nasal B.pertussis DNA PCR NOT DETECTED Nasal C.pneumoniae (PCR) NOT DETECTED Kanu Human Metapneumo PCR NOT DETECTED Nasal M.pneumoniae (PCR) NOT DETECTED Nasal SARS-CoV-2 (PCR) NOT DETECTED Urine Opiates Screen NEGATIVE Ur Oxycodone Screen NEGATIVE Urine Methadone Screen NEGATIVE Ur Propoxyphene Screen NEGATIVE Ur Barbiturates Screen NEGATIVE Ur Tricyclics Screen POSITIVE H Ur Phencyclidine Scrn NEGATIVE Ur Amphetamine Screen NEGATIVE U Methamphetamines Scrn NEGATIVE U Benzodiazepines Scrn NEGATIVE Urine Cocaine Screen NEGATIVE U Cannabinoids Screen NEGATIVE - Rads (name of study) CT head Radiology: Final report received (No definite acute intracranial abnormality. Mild chronic white matter small vessel chronic ischemic changes and cerebral volume loss.) CT angio head Radiology: Final report received (No significant intracranial arterial abnormalities are seen.), Discussed with rads CT angio neck Radiology: Final report received (No hemodynamically significant stenosis can be seen within the arteries of the neck. There is medialization noted of the right carotid bifurcation. At least moderate cervical spine degenerative changes can be seen.) PD MEDICAL DECISION MAKING - ED course ED course: 70-year-old female presents the emergency department for evaluation of acute altered mental status that includes left-sided facial droop left-sided weakness and aphasia. She had a similar presentation 1 week ago when seen at [facility] where no TPA was administered and patient had full resolution of symptoms. Pt was reportedly dc with an rx for daily asa 81 mg and atorvastatin. Unfortunately she did not tolerate the MRI at that time and MRI imaging was inconclusive for stroke. Given the acuteness of this presentation will initiate telestroke. She does however present wit a fairly robust Modified NIH scale of 20 1325: I have spoke with Dr. Nick walden stroke neurologust. Since patient has arrived to the emergency department though she remains obtunded her movements are becoming more spontaneous and robust. CT of the head does not reveal any bleed however given her improving condition we will defer TPA at this time. Dr. Dominguez is requesting that patient have follow-up MRI as well has possible EEG as her symptoms may be related to seizure activity. Will start the process of transferring. Patient will be given aspirin 300 mg perirectally. Cannot administer Plavix at this time as she remains aphasic and unsure of swallow. Patient is declined at [facility] as they do not have EEG services or neurology available. Will attempt transfer to [facility]. 1410: Patient is declined at [facility] as they do not have EEG services or neurology available. Will attempt transfer to [facility] 1430: I have spoken with Dr. Yadira edmondson hospitalist at [facility]. He asked me to make a courtesy phone call to the on-call neurologist Dr. Alexis to make him aware of the patient's pending transfer which I have done. Dr. Alexis also agrees patient requires further transportation and care to include MRI and EEG. 1800: ALS ambulance is here to transport to [facility]. On reevaluation of patient, though she is still lethargic, she is able to follow simple commands. Left sided facial droop is improving. Left sided weakness improving, though not resolved. Appropriate [employer] paperwork has been completed. Departure - Departure Disposition: 02 Transfer Acute Care Hosp Clinical Impression: Stroke-like symptoms, Left-sided weakness Altered mental status Qualifiers: Altered mental status type: coma Coma depth: Deion coma 3-8 Coma timing: at arrival to emergency department Qualified Code(s): R40.2432 - Deion coma scale score 3-8, at arrival to emergency department
[2021-01-24 12:42] LABS: INR 1.1 (0.8-1.2); PT - PROTHROMBIN TIME 12.2 secs (9.9-12.6)
[2021-01-24 12:46] LABS: ALBUMIN 4.5 g/dL (3.2-5.5); ALBUMIN/GLOBULIN RATIO 1.2 (1.0-2.2); BILIRUBIN,TOTAL 0.6 mg/dL (0.2-1.0); CALCIUM 9.5 mg/dL (8.5-10.3); POTASSIUM 3.8 mmol/L (3.5-5.0); TOTAL PROTEIN 8.4 g/dL (6.7-8.2)
[2021-01-24 12:54] LABS: PARTIAL THROMBOPLASTIN TIME 31.4 secs (24.9-33.3)
[2021-01-24] MEDS ORDERED: IOPAMIDOL-300 100 ML VIAL IVP ONE (13:19)
--- NOTE | 2021-01-24 13:26 | CT Report ---
PROCEDURE: ANGIO HEAD W/WO INDICATIONS: L sided facial droop CONTRAST: IV CONTRAST: Isovue 300 ml: 80 PO CONTRAST: *NO PO CONTRAST TECHNIQUE: Precontrast 4.5 mm thick angled axial sections acquired from the foramen magnum to the vertex. Afte r the administration of intravenous contrast, 1 mm thick sections acquired through the [place] is. Postcontrast 4.5 mm thick sections then re-acquired from the foramen magnum to the vertex. 3-di mensional azvibho-aempzrzsh-vufnysxwvf (MIP) and/or volume rendering reformats were acquired of the c entral intracranial vasculature. For radiation dose reduction, the following was used: automated ex posure control, adjustment of mA and/or kV according to patient size. COMPARISON: Correlation is made with the prior noncontrast head CT, 01/24/2021. Correlation is also ma de with the accompanying neck CT angiogram, 01/24/2021. FINDINGS: Image quality: Excellent. Anterior circulation: Intracranial internal carotid arteries demonstrate S chronic calcification and irregularity, with 40-50% narrowing seen on each side. The flow within the paired anterior cerebral arteries is normal and symmetric. The flow within the middle cerebral arteries is normal and symmetr ic. The anterior communicating artery is seen. No aneurysms are seen. Posterior circulation: Visualized portions of the vertebral arteries demonstrate normal caliber, and join to form a normal appearing basilar artery. Flow within the posterior cerebral arteries is norm al and symmetric. No aneurysms are seen. CSF spaces: Ventricles are normal in size and shape. Basal cisterns are patent. No extra-axial flu id collections. Brain: No midline shift. No intracranial bleeds or masses. Miller-white matter interface appears int act. Skull and face: Calvarium and facial bones appear intact, without suspicious lesions. Sinuses: Visualized sinuses and mastoids are clear. IMPRESSION: No significant intracranial arterial abnormalities are seen. No masses or abnormal enhancement can be seen. Reviewed by: Noe Gonzalez MD on 01/24/2021 12:24 PM CHUCKY Approved by: Noe Gonzalez MD on 01/24/2021 12:24 PM CHUCKY Station ID: [id number]
[2021-01-24] MEDS ORDERED: ASPIRIN 300 MG SUPP PR STA (13:27)
--- NOTE | 2021-01-24 13:28 | CT Report ---
PROCEDURE: ANGIO NECK W INDICATIONS: L sided facial droop, L neck pain CONTRAST: IV CONTRAST: Isovue 300 ml: 80 PO CONTRAST: *NO PO CONTRAST TECHNIQUE: After the administration of intravenous contrast, 1.5 mm axial sections acquired from the aortic arch to the [place] of [place]. Coronal 3-D maximum intensity projection (MIP) and/or volume rendering ref ormats were then performed. For radiation dose reduction, the following was used: automated exposur e control, adjustment of mA and/or kV according to patient size. COMPARISON: Correlation is made with the accompanying brain angiogram and on the previously performe d noncontrast head CT, 01/24/2021. FINDINGS: Image quality: There is streak artifact seen through the level of the shoulders. Carotid system: The great vessels demonstrate a conventional anatomy as they arise from the aortic a rch. The origins of the common carotid arteries appear patent. The common carotid arteries demonstr ate normal calibers and courses. The bifurcation regions demonstrate atherosclerotic irregularity wi th calcification. There is 20-30% narrowing seen on each side. The right carotid bifurcation is media lly located, as on series 4 image 113 and on series 2 image 117. The more distal internal carotid art eries are mildly tortuous, yet demonstrate normal caliber. Posterior circulation: The origins of the vertebral arteries appear patent. The more superior porti ons of the vertebral arteries demonstrate normal course and caliber. The right vertebral artery is do minant to the left. They join to form a normal appearing basilar artery. Soft tissues: Visualized neck soft tissues demonstrate no suspicious abnormalities. The thyroid gla nd is normal in size. Bones: No suspicious bony lesions. Visualized cervical spine appears normally aligned. At least m oderate cervical spine degenerative change can be seen. IMPRESSION: No hemodynamically significant stenosis can be seen within the arteries of the neck. There is medialization noted of the right carotid bifurcation. At least moderate cervical spine degenerative changes can be seen. The estimate of stenosis included in the report of the imaging study was calculated using the NASCET method Reviewed by: Noe Gonzalez MD on 01/24/2021 12:27 PM CHUCKY Approved by: Noe Gonzalez MD on 01/24/2021 12:27 PM AKALEXEY Station ID: [id number]
[2021-01-24 13:45] LABS: MUDS CUTOFF CONCENTRATIONS CUTOFF CONC BELOW:
[2021-01-24 13:48] LABS: BILIRUBIN,URINE NEGATIVE (NEGATIVE); GLUCOSE, URINE (UA) NEGATIVE (NEGATIVE); KETONES,URINE (UA) NEGATIVE (NEGATIVE); LEUKOCYTE ESTERASE, URINE NEGATIVE (NEGATIVE); NITRITE,URINE NEGATIVE (NEGATIVE); OCCULT BLOOD,URINE NEGATIVE (NEGATIVE); PH,URINE 8.5 PH (5.0-7.5); PROTEIN,URINE NEGATIVE (NEGATIVE); UROBILINOGEN,URINE 0.2 (NORMAL) E.U./dL (NORMAL)
[2021-01-24 13:52] LABS: CLARITY,URINE CLEAR (CLEAR)
[2021-01-24 13:58] LABS: AMPHETAMINE SCREEN,URINE NEGATIVE (NEGATIVE); BENZODIAZEPINES SCREEN, URINE NEGATIVE (NEGATIVE); COCAINE SCREEN URINE NEGATIVE (NEGATIVE); METHAMPHETAMINES SCREEN, URINE NEGATIVE (NEGATIVE); OPIATE SCREEN, URINE NEGATIVE (NEGATIVE); THC CANNABINOID SCREEN, URINE NEGATIVE (NEGATIVE)
[2021-01-24 13:59] LABS: BARBITURATE SCREEN,UR NEGATIVE (NEGATIVE); METHADONE SCREEN, URINE NEGATIVE (NEGATIVE); OXYCODONE SCREEN, URINE NEGATIVE (NEGATIVE); PROPOXYPHENE SCREEN, URINE NEGATIVE (NEGATIVE); TRICYCLIC ANTIDEPRESSANT,URINE POSITIVE (NEGATIVE)
[2021-01-24] MEDS ORDERED: SODIUM CHLORIDE 0.9% 1,000 ML IV STA (15:16)
[2021-01-24 15:36] LABS: B. PARAPERTUSSIS- RESP PCR PAN NOT DETECTED; B. PERTUSSIS- RESP PCR PANEL NOT DETECTED; C. PNEUMONIAE- RESP PCR PANEL NOT DETECTED; CORONAVIRUS 229E-RESP PCR NOT DETECTED; CORONAVIRUS HKU1-RESP PCR NOT DETECTED; CORONAVIRUS NL63-RESP PCR NOT DETECTED; CORONAVIRUS OC43-RESP PCR NOT DETECTED; HUMAN METAPNEUMOVIRUS NOT DETECTED; INFLUENZA A- RESP PCR PANEL NOT DETECTED; INFLUENZA B - RESP PCR PANEL NOT DETECTED; M. PNEUMONIAE- RESP PCR PANEL NOT DETECTED; PARAINFLUENZA VIRUS 1 NOT DETECTED; PARAINFLUENZA VIRUS 2 NOT DETECTED; PARAINFLUENZA VIRUS 3 NOT DETECTED; PARAINFLUENZA VIRUS 4 NOT DETECTED; RHINOVIRUS/ENTEROVIRUS NOT DETECTED; RSV- RESP PCR PANEL NOT DETECTED; SARS-CoV-2 -RESP PCR PANEL NOT DETECTED
[2021-01-24 17:05] VITALS: BP 147/94
== END 2021-01-24 18:25 | disposition short-term general hospital (02) ==
LOC: EDUNIT# → ED 12:02
DX: R53.1 Weakness (principal); R40.2432 Glasgow coma scale score 3-8, at arrival to emergency department; R29.90 Unspecified symptoms and signs involving the nervous system; I10 Essential (primary) hypertension; F20.9 Schizophrenia, unspecified; Z20.822 Contact with and (suspected) exposure to COVID-19
CPT/HCPCS: 36415; 70450; 70496; 70498; 80053; 80306; 81003; 83690; 85025; 85610; 85730; 87631; 93005; 99285; A9270; Q9967; 0202U; 81001; 87086

== ENCOUNTER 2021-01-24 18:19 | Outpatient (CLI) | payer MEDICARE, OTHER, MEDICAID | END 2021-01-24 18:20 | disposition short-term general hospital (02) | LOC: EMS 18:19 | PROVIDERS: ATTEND Registered Nurse | DX: R41.82 Altered mental status, unspecified (principal); R53.1 Weakness | CPT/HCPCS: A0425; A0428 ==

== ENCOUNTER 2021-02-24 10:41 | Outpatient (CLI) | payer MEDICARE, OTHER, MEDICAID ==
--- NOTE | 2021-02-24 12:34 | SLEEP CARE CONSULTATION ---
Information from patient questionnaire entered by Mirela Wells. I have reviewed and concur with the information entered by Mirela Wells. This document represents the service I personally performed and the decisions made by me, Karen Stauffer MD, [facility]. History of Present Illness Service Date and Time: 02/24/2021 1041 Reason for Visit: New patient Chief Complaint: reports: Insomnia, Frequent awakenings at night Date of Onset: 12 years Usual bedtime: 7:30 pm Time it takes to fall asleep: 30 minutes, but up a couple hours later Snores at night: No Observed to quit breathing while asleep: No Sleeps alone due to snoring: No Number of times waking at night: many Reasons for waking at night: reports: Bathroom, Other (unknown reason) Toss, Turn, or Twitch while sleeping: No Recalls having dreams: Yes Usually gets out of bed at: 4:30 - 5 am Feels refreshed in the morning: Yes Morning headache: No Sleepy or fatigued during the day: Yes Ever fallen asleep while driving: No Takes day naps: Yes Prior sleep studies: No Additional HPI information: I have the pleasure of seeing Ms. Montoya along with her career resource specialist today regarding the possibility of her having obstructive sleep apnea. As you know, she is a 70 year old lady who complains of insomnia. Her career resource specialist reports that she wakes up at night and watches TV for couple hours before going back to bed. She recently evaluated for possible stroke and was recommended to have a sleep study. The patient tells me that she normally goes to bed around 7:30 pm, and it takes her approximately 30 minutes to several hours to fall asleep. She has been told that she snores loudly or irregularly at night. She has never been observed to stop breathing in her sleep. However, she sleeps alone. She can recall waking up on the average of 1 - 2 times during the night. Most of the time she wakes up because of having to use the bathroom. She has never awakened because of her own snoring, choking, or having to gasp for air. There is not a lot of tossing and turning in her sleep. No somniloquy (sleep talking) or somnambulism (sleep walking). Generally she can recall having dreams. In the morning she usually gets up out of the bed around 5 a.m. not feeling refreshed nor rested. She usually does not have a morning headache. During the day she complains of feeling sleepy and fatigued. Her score on [place] Sleepiness Scale is 12 out of 21 (she does not drive). She usually takes 3 4 short naps during the day. She reports having impaired concentration during the day. - Parasomnia Symptoms Ever been unable to move upon waking from sleep: No Walks in sleep: No Talks in sleep: No Ever acted out dreams in sleep: No Ever felt weak in the knees when startled or emotional: Yes Problems with memory or concentration: Yes Subjective Initial [place] Sleepiness Scale score: 12 (in 2020) Past Medical History Past Medical History: reports: Hypertension, Arthritis, Anxiety, Depression, Other (schizophrenia) Social History The patient's occupation is a Retired. Patient is Single and lives in [place]. Have you smoked in the past 12 months: No Alcohol use: No Caffeine use: Yes Caffeine amount and frequency: 1 cup, a day of coffee Allergies and Home Medications Drug allergies reviewed: Yes Home medication list reviewed: Yes Review of Systems Cardiovascular: reports: high blood pressure Respiratory: denies: shortness of breath, wheeze, sputum production, chronic cough, other Gastrointestinal: denies: heartburn, difficulty swallowing, nausea, vomitting, diarrhea, abdominal pain, other Urinary: denies: incontinence, frequency, urgency, impotence, other Neurological: denies: headaches, seizure, head trauma, disorientation, speech dysfunction, gait or balance problems, fainting or unconsciousness, other Psychiatric: reports: anxiety, depression, other (schziophrenia) Ear/Nose/Throat: denies: nasal congestion, sinus problems, nose bleeds, dry mouth/throat, hoarseness, injury to nose, tonsillectomy, wisdom teeth removed, other Endocrine: denies: thyroid disease, history of goiter, sluggishness, too hot or cold, excessive thirst, increased appetite, increased urination, unexplained weakness, other Musculoskeletal: reports: joint pain, mobility problems Immunologic: reports: rash Physical Exam Vital signs obtained and entered by: Dr. Stauffer Heart Rate: 67 O2 Saturation: 97 Height: 4 ft 5 in Weight: 140 lb Body Mass Index: 35.0 BMI Classification: Obese Neck circumference: 16 Impression and Plan IMPRESSION: 1. Obstructive Sleep Apnea-Hypopnea Syndrome, as evident by history of insomnia, unrefreshed sleep, cognitive impairment, and daytime hypersomnolence. Narrow oropharynx and obesity are common predisposing factors for obstructive sleep apnea-hypopnea syndrome. Her STOPBANG score is 4 (neck size, BMI, age, and high blood pressure). I recommend proceeding to polysomnography to confirm the diagnosis and to assess severity. If she has significant sleep disordered breathing, a manual CPAP titration study will also be performed to find the optimal treatment pressure. I informed the patient of what the sleep studies involve and after some discussion, she agreed to proceed. 2. Insomnia, due to excessive time spent in bed. Because she naps about 1 hour during the day, she is left with 7 hours of sleep at night. Presently, she is given 9.5 hours for sleeping at night between 7:30 pm and 5 am. Therefore, being awake for 2 3 hours in the middle of the night is only appropriate. I recommend she does not go to bed until at least 10 pm. Plan: 1. Schedule polysomnography +/- manual CPAP titration study and return in 1 to 2 weeks after the study to discuss result and initiate therapy. 2. Avoid alcohol, sedative and muscle relaxant around bedtime. 3. Attempt to lose weight. 4. Spend no more than 7 hours in bed at night. 5. Return for follow up after sleep study. Counseling Topics: Weight control Visit Type: In Office Time Spent with Patient (minutes): 15 Provider Statement: I spent 100% of the Face to Face Visit with the patient with greater than 50% spent counseling the patient and coordination of care.
== END 2021-02-24 10:42 | disposition home or self-care (01) ==
LOC: SC 10:41
PROVIDERS: ATTEND Internal Medicine Pulmonary Disease
DX: G47.10 Hypersomnia, unspecified (principal); G47.00 Insomnia, unspecified; R41.89 Other symptoms and signs involving cognitive functions and awareness; E66.9 Obesity, unspecified; Z68.35 Body mass index [BMI] 35.0-35.9, adult
CPT/HCPCS: 99202; G0463; 99212

== ENCOUNTER 2021-03-03 18:16 | Outpatient (CLI) | payer MEDICARE, OTHER, MEDICAID | END 2021-03-03 18:17 | disposition critical access hospital (66) | LOC: EMS 18:16 | DX: M25.561 Pain in right knee (principal) | CPT/HCPCS: A0425; A0429 ==

== ENCOUNTER 2021-03-03 18:27 | Emergency (ER) | payer MEDICARE, OTHER, MEDICAID ==
--- OUTSIDE RECORDS SUMMARY | 2021-03-03 18:36 | EXTERNAL MEDICAL SUMMARY RPT | Continuity of Care Document ---
:1950 Demographics Phone Unavailable Preferred Language Maori Marital Status Unknown Zoroastrian Affiliation Unknown Race Unknown Ethnic Group Unknown Author Organization [facility] Address [address] [phone] Phone Care Team Providers Name Role Phone Laursen Unavailable Unavailable Dannhaur Unavailable Unavailable Allergies Encounters Medications date description facility 20210118 Aspirin 81 MG Enteric Coated Tablet [facility] 20210118 atorvastatin 80 MG Oral Tablet [facility] 20210117 meloxicam 7.5 MG Oral Tablet [facility] spital Problems date description facility 20210117 Cerebral infarction, unspecified [facility] Procedures date description facility 20210117 General Physician [facility] 20210117 Finding [facility] 20210117 Diagnosis [facility] Results Vital Signs date measurement value source 20210117 weight_standard 179.68 lb 20210117 weight_metric 81.5 kg 20210117 temperature_standard 97.7 F 20210117 temperature_metric 36.5 C 20210117 respiration_rate 15 /min 20210117 height_standard 64 in 20210117 height_metric 162.56 cm 20210117 heart_rate 73 /min 20210117 BP_systolic 141 mm[Hg] [id number] BP_diastolic 76 mm[Hg] 20210118 temperature_standard 97.9 F 20210118 temperature_metric 36.61 C 20210118 respiration_rate 18 /min 20210118 heart_rate 84 /min 20210118 BP_systolic 148 mm[Hg] 20210118 BP_diastolic 91 mm[Hg]
--- NOTE | 2021-03-03 19:42 | ED Physician Documentation ---
History of Present Illness - Stated complaint Stated Complaint: R KNEE PX - Chief complaint Chief Complaint: Trauma Ext - Additonal information Additional information: 70-year-old female presents the emergency department for evaluation of worsening right knee pain. She has a longstanding history of osteoarthritis but over the last few weeks walking has been increasingly difficult and the staff at her place find that her knee is buckling often. 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 Review of Systems Unable to obtain: Other (language barrier) Constitutional: denies: Fever Eyes: reports: Reviewed and negative Nose: reports: Reviewed and negative Throat: reports: Reviewed and negative Cardiac: reports: Reviewed and negative Respiratory: reports: Reviewed and negative GI: reports: Reviewed and negative : reports: Reviewed and negative Musculoskeletal: reports: Joint pain (Right knee) PD PAST MEDICAL HISTORY - Past Medical History Cardiovascular: Hypertension Respiratory: None Neuro: Other Endocrine/Autoimmune: Type 2 diabetes GI: None : Frequency, Other Psych: Anxiety, Schizophrenia Musculoskeletal: None - Past Surgical History Past Surgical History: No General:  /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 HEENT: Cataracts - Present Medications Home Medications: Ambulatory Orders Medication Instructions Recorded Confirmed Loratadine [Claritin] 10 mg PO DAILY 11/06/14 01/24/21 amLODIPine [Norvasc] 10 mg PO DAILY 03/28/16 01/24/21 ARIPiprazole [Abilify] 20 mg PO DAILY 04/05/20 01/24/21 Ascorbic Acid [Vitamin C] 1 tab PO DAILY 04/05/20 01/24/21 Fluticasone [Flonase] 1 spray KANU DAILY 04/05/20 01/24/21 Docusate Calcium 100 - 200 mg PO BID #60 capsule 05/01/20 01/24/21 Acetaminophen [Acetaminophen Extra 500 mg PO TID 01/24/21 01/24/21 Strength] Cholecalciferol (Vitamin D3) 1,000 unit PO DAILY 01/24/21 01/24/21 [Vitamin D3] Meloxicam [Mobic] 7.5 mg PO BID 01/24/21 01/24/21 Multivitamin 1 tab PO DAILY 01/24/21 01/24/21 - Allergies Allergies/Adverse Reactions: Allergies Allergy/AdvReac Type Severity Reaction Status Date / Time hydrochlorothiazide Allergy Unknown Verified 03/03/21 18:31 - Social History Does the pt smoke?: No Smoking Status: Never smoker Does the pt drink ETOH?: No Does the pt have substance abuse?: No - Immunizations Immunizations are current?: Yes - POLST Patient has POLST: No PD ED PE EXPANDED - General General: Alert, No acute distress - Extremities Extremities: Right knee (No swelling or erythema noted to this knee. No pain with passive flexion and extension. No laxity in the joint. No effusion palpated.) Results - Vitals Vitals: Vital Signs - 24 hr 03/03/21 18:33 Temperature 37.4 C Heart Rate 94 Respiratory 20 Rate Blood Pressure 178/97 H O2 Saturation 99 Oxygen O2 Source Room air - Rads (name of study) right knee Radiology: EMP read indepedently (Severe degenerative osteoarthritis) PD MEDICAL DECISION MAKING - ED course Complexity details: reviewed results ED course: 70-year-old female who lives at home care presents the emergency department with worsening right knee pain and the feeling that her knee victorino when she bears weight. X-ray is consistent with severe degenerative osteoarthritis which is well known to her. Patient will was placed in a fixed knee brace and will be referred to orthopedics for follow-up will recommend she continue to take her Tylenol for pain at home and will recommend continued use of the walker. At this time no findings to suggest fracture or infection Departure - Departure Disposition: 01 Home, Self Care Clinical Impression: Right knee pain Qualifiers: Chronicity: chronic Qualified Code(s): M25.561 - Pain in right knee; G89.29 - Other chronic pain Osteoarthritis of right knee Qualifiers: Osteoarthritis type: unspecified Qualified Code(s): M17.11 - Unilateral primary osteoarthritis, right knee Condition: Stable Record reviewed to determine appropriate education?: Yes Follow-Up: [facility] [Provider Group] Comments: The x-ray of her knee show severe arthritis. She should continue to take the Tylenol and meloxicam as already prescribed for knee pain. Please call the orthopedics department to arrange follow-up. She may require a knee replacement in the future. The referral to orthopedics may need to be arranged through her primary care provider. She may also benefit from a referral to physical therapy Please wear the knee brace when out of bed and using the walker.
--- NOTE | 2021-03-03 19:44 | XRAY Report ---
PROCEDURE: Knee 3 View RT INDICATIONS: pain TECHNIQUE: 3 views of the right knee were acquired. COMPARISON: None. FINDINGS: Bones: No fractures or dislocations. There is lateral migration of the tibia with respect to the dis kylie femur. Tricompartmental osteophytosis is present. Severe joint space narrowing is demonstrated in the medial compartment with subchondral sclerosis. No suspicious bony lesions. Soft tissues: There is a moderate joint effusion. No suspicious soft tissue calcifications. IMPRESSION: 1. No fracture or dislocation. 2. Tricompartmental osteoarthritic changes including severe degeneration of the medial compartment. 3. Lateral migration of the proximal tibia with respect to the distal femur. 4. Moderate joint effusion. Reviewed by: Carlos Shaw MD on 03/03/2021 7:42 PM PDT Approved by: Carlos Shaw MD on 03/03/2021 7:42 PM PDT Station ID: [id number]
[2021-03-04 09:37] VITALS: BP 190/90
== END 2021-03-04 09:35 | disposition home or self-care (01) ==
LOC: EDUNIT# → ED 18:27
DX: M17.11 Unilateral primary osteoarthritis, right knee (principal); M25.561 Pain in right knee; G89.29 Other chronic pain; I10 Essential (primary) hypertension; E11.9 Type 2 diabetes mellitus without complications
CPT/HCPCS: 99283